=== PATIENT | female | born 1980 | race African-American/Black ===

== ENCOUNTER 2024-06-27 22:07 | Inpatient (IN) | payer MEDICAID, OTHER ==
[~2024-06-27] VITALS: Ht 162.6 cm; Wt 81.0 kg
[2024-06-27 22:58] LABS: PH,URINE DRUG SCREEN 5.5 (5.0-8.0)
[2024-06-27 23:04] LABS: AMPHET/METH SCREEN,URINE POSITIVE (NEGATIVE); BARBITURATE SCREEN, URINE NEGATIVE (NEGATIVE); BENZODIAZEPINES SCREEN,URINE NEGATIVE (NEGATIVE); CANNABINOID SCREEN,URINE NEGATIVE (NEGATIVE); COCAINE SCREEN,URINE NEGATIVE (NEGATIVE); METHADONE SCREEN, URINE NEGATIVE (NEGATIVE); OPIATE SCREEN,URINE NEGATIVE (NEGATIVE); PHENCYCLIDINE SCREEN,URINE NEGATIVE (NEGATIVE)
[2024-06-27 23:05] LABS: ALCOHOL, URINE DRUG SCREEN POSITIVE (NEGATIVE)
[2024-06-27 23:27] LABS: BASOPHILS % (AUTO) 1.1 % (0.0-2.0); EOSINOPHILS % (AUTO) 2.6 % (1.0-6.0); HEMOGLOBIN 14.6 g/dL (12.0-16.0); LYMPHOCYTES % (AUTO) 60.7 % (22.0-44.0); MEAN CORPUSCULAR HEMOGLOBIN 31.8 pg (26.0-34.0); MEAN CORPUSCULAR VOLUME 93 fL (80-100); MONOCYTES # (AUTO) 0.2 K/uL (0.1-1.0); MONOCYTES % (AUTO) 6.5 % (2.0-9.0); NEUTROPHILS % (AUTO) 29.1 % (40.0-70.0); PLATELET COUNT (AUTO) 196 K/uL (150-450); RED CELL DISTRIBUTION WIDTH 14.2 % (11.5-14.5); WHITE BLOOD COUNT (AUTO) 3.3 K/uL (4.5-11.0)
[2024-06-27 23:35] LABS: ANION GAP 6 mmol/L (8-16); CALCIUM, TOTAL 8.7 mg/dL (8.8-10.5); CARBON DIOXIDE 30 mmol/L (22-29); CHLORIDE 102 mmol/L (98-107); GLOMERULAR FILTR. RATE CALC > 60 mL/min (>60); GLUCOSE,RANDOM 94 mg/dL (70-110); POTASSIUM 3.8 mmol/L (3.5-5.1); SODIUM SERUM 138 mmol/L (136-145); UREA NITROGEN, BLOOD 6 mg/dL (7-18)
[2024-06-27 23:56] LABS: ALCOHOL, BLOOD (SERUM) 292 mg/dL (0-10)
[2024-06-28] MEDS: LORazepam 2 MG/ML VIAL IVP ONE (01:09)
[2024-06-28] MEDS: MAGNESIUM SULFATE 2 GM, MVI, ADULT NO.1 WITH VIT K 10 ML, THIAMINE 100 MG, FOLIC ACID 1... IV ONE (01:10)
[2024-06-28] MEDS: ChlordiazePOXIDE HCL 25 MG CAPSULE PO ONE (08:54)
[2024-06-28] MEDS ORDERED: HALOPERIDOL 5 MG TABLET PO PRN (09:30)
[2024-06-28 10:59] LABS: COVID AG,FIA SOURCE NASAL SWAB
[2024-06-28 11:30] LABS: SARS-COV2 (COVID) ANTIGEN,FIA Negative (Negative)
[2024-06-28] MEDS: LORazepam 2 MG TABLET PO PRN (16:27)
[2024-06-28 18:08] VITALS: BP 144/95; PULSE 100; RESP 19; TEMP 98; O2SAT 98
[2024-06-28] MEDS ORDERED: INFLUENZA VIRUS VACCINE TVS (6MO+) 2024-25/PF 45 MCG/0.5 ML SYRINGE IM. ONE (19:00)
[2024-06-28 21:26] VITALS: BP 159/88; PULSE 79; RESP 17; TEMP 97.9; O2SAT 97
[2024-06-29] MEDS ORDERED: BENZOCAINE/MENTHOL LOZENGE PO PRN (05:30)
[2024-06-29] MEDS ORDERED: ALBUTEROL SULFATE HFA 90 MCG/PUFF 8 GM INHALER IH PRN (05:30)
[2024-06-29] MEDS ORDERED: PETROLATUM,WHITE 28 GM JELLY TP PRN (05:30)
[2024-06-29] MEDS ORDERED: ONDANSETRON 4 MG TABLET PO PRN (05:30)
[2024-06-29] MEDS ORDERED: LOPERAMIDE HCL 2 MG CAPSULE PO PRN (05:30)
[2024-06-29] MEDS ORDERED: DOCUSATE SODIUM 100 MG CAPSULE PO PRN (05:30)
[2024-06-29] MEDS ORDERED: OMEPRAZOLE 20 MG CAPSULE PO PRN (05:30)
[2024-06-29] MEDS ORDERED: MAGNESIUM HYDROXIDE SUSPENSION 30 ML UDCUP PO PRN (05:30)
[2024-06-29] MEDS ORDERED: BACITRACIN 28 GM OINTMENT TP PRN (05:30)
[2024-06-29] MEDS ORDERED: CloNIDine HCL 0.1 MG TABLET PO PRN (05:30)
[2024-06-29 06:44] LABS: HEMOGLOBIN A1C 5.7 % (3.8-5.6)
[2024-06-29 09:07] VITALS: BP 171/108; PULSE 86; RESP 18; TEMP 98.6; O2SAT 97
[2024-06-29 16:45] VITALS: BP 149/96; PULSE 86; RESP 18; TEMP 97.9; O2SAT 98
[2024-06-29] MEDS: IBUPROFEN 600 MG TABLET PO PRN (16:45)
[2024-06-29 21:40] VITALS: BP 141/97; PULSE 75; RESP 18; TEMP 97; O2SAT 98
[2024-06-29] MEDS: ZOLPIDEM TARTRATE 10 MG TABLET PO PRN (21:51)
[2024-06-30 08:50] VITALS: BP 144/97; PULSE 83; RESP 19; TEMP 97; O2SAT 97
[2024-06-30] MEDS: MAG HYDROX/ALUMINUM HYD/SIMETH ES 30 ML SUSPENSION UDCUP PO PRN (08:53)
[2024-06-30] MEDS: FLUoxetine HCL 20 MG CAPSULE PO SCH (14:06)
[2024-06-30 23:55] VITALS: BP 138/92; PULSE 79; RESP 19; TEMP 98.1; O2SAT 98
[2024-07-01 01:00] VITALS: RESP 18
[2024-07-01 09:38] VITALS: BP 131/92; PULSE 83; RESP 17; TEMP 98; O2SAT 97
[2024-07-01] MEDS ORDERED: FLUO-418 PO (14:02)
[2024-07-01] MEDS: ACETAMINOPHEN 325 MG TABLET PO PRN (15:52)
== END 2024-07-01 16:30 | disposition home or self-care (01) | DRG 754 ==
LOC: EMS 22:07 → EDBEDREQSVC 06-28 09:22 → 3EI 06-28 20:18
PROVIDERS: ADMIT Psychiatry & Neurology Psychiatry; ATTEND Psychiatry & Neurology Psychiatry
PROC: GZ56ZZZ Individual Psychotherapy, Supportive (ICD-10-PCS; principal; 2024-06-29)
DX: F32.9 Major depressive disorder, single episode, unspecified (principal); R45.851 Suicidal ideations; F10.229 Alcohol dependence with intoxication, unspecified; Z20.822 Contact with and (suspected) exposure to COVID-19; F15.10 Other stimulant abuse, uncomplicated; J45.909 Unspecified asthma, uncomplicated; Z90.710 Acquired absence of both cervix and uterus
CPT/HCPCS: 80048; 80061; 80307; 83036; 85025; 96365; 96375; 99285; G0480; J2060; J3411; J3475; J3490; J7030